=== PATIENT | female | born 1990 | race African-American/Black ===

== ENCOUNTER 2017-12-14 10:04 | Emergency (ER) | payer MEDICAID, SELFPAY ==
[2017-12-14] MEDS ORDERED: diphenhydrAMINE 50 MG/ML SDV IVPUSH ONE (11:07)
[2017-12-14] MEDS ORDERED: Ketorolac 30 MG/ML SDV IVPUSH ONE (11:07)
[2017-12-14] MEDS ORDERED: Prochlorperazine 5 MG in Sodium Chloride 0.9% 50 ML IV ONE (11:07)
[2017-12-14] MEDS ORDERED: Lactated Ringers 1,000 ML IV ONE (11:08)
--- NOTE | 2017-12-14 11:11 | EDM.PDOC ---
ED HPI GENERAL MEDICAL PROBLEM - General Chief Complaint: Headache Stated Complaint: HEADACHE Time Seen by Provider: 12/14/17 10:58 Source of Information: Reports: Patient, Family, RN Notes Reviewed History Limitations: Reports: No Limitations - History of Present Illness INITIAL COMMENTS - FREE TEXT/NARRATIVE: 27-year-old female presents emergency department today complaint of headache, she has a known history of migraine headaches which she uses Imitrex, this particular event has been ongoing for the last week she does have nausea and vomiting, photophobia she does not describe any aura her triptan's have not provided her any relief. 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: Neurological History: Reports: Migraines - Past Surgical History GI Surgical History: Reports: Appendectomy Social & Family History - Tobacco Use Smoking Status *Q: Current Every Day Smoker Years of Tobacco use: 15 Packs/Tins Daily: 0.5 - Recreational Drug Use Recreational Drug Use: No ED ROS GENERAL - Review of Systems Review Of Systems: See Below Constitutional: Denies: Fever, Chills HEENT: Reports: No Symptoms Respiratory: Reports: No Symptoms Cardiovascular: Reports: No Symptoms GI/Abdominal: Reports: Nausea, Vomiting : Reports: No Symptoms Neurological: Reports: Headache - Physical Exam Exam: See Below Exam Limited By: No Limitations General Appearance: Alert, WD/WN, No Apparent Distress Eye Exam: Bilateral Eye: EOMI, Normal Fundi, Normal Inspection, PERRL Respiratory/Chest: No Respiratory Distress Course - Vital Signs Last Recorded V/S: Last Vital Signs Temp 96.2 F 12/14/17 10:36 Pulse 60 12/14/17 12:20 Resp 12 12/14/17 12:20 BP 108/68 12/14/17 12:20 Pulse Ox 98 12/14/17 12:20 - Orders/Labs/Meds Orders: Active Orders 24 hr Category Date Time Status Peripheral IV Care [RC] . DIRECTED Care 12/14/17 11:09 Active Sodium Chloride 0.9% [Saline Flush] Med 12/14/17 11:08 Active 10 ml FLUSH ASDIRECTED PRN Peripheral IV Insertion Adult [OM.PC] Urgent Oth 12/14/17 11:08 Ordered Medication Orders Sodium Chloride (Saline Flush) 10 ml FLUSH ASDIRECTED PRN PRN Reason: Keep Vein Open Last Admin: 12/14/17 11:44 Dose: 10 ml Admin: 12/14/17 11:39 Dose: 10 ml Meds: Medications Generic Name Dose Route Start Last Admin Trade Name Freq PRN Reason Stop Dose Admin Sodium Chloride 10 ml 12/14/17 11:08 12/14/17 11:44 Saline Flush FLUSH 10 ml ASDIRECTED PRN Administration Keep Vein Open Discontinued Medications Generic Name Dose Route Start Last Admin Trade Name Freq PRN Reason Stop Dose Admin Diphenhydramine HCl 50 mg 12/14/17 11:07 12/14/17 11:40 Benadryl IVPUSH 12/14/17 11:08 50 mg ONETIME ONE Administration Prochlorperazine Edisylate 5 51 mls @ 150 mls/hr 12/14/17 11:07 12/14/17 11: 39 mg/ Sodium Chloride IV 12/14/17 11:27 150 mls/hr ONETIME ONE Administration Lactated Ringer's 1,000 mls @ 999 mls/hr 12/14/17 11:08 12/14/17 11:39 Ringers, Lactated IV 12/14/17 12:08 999 mls/hr BOLUS ONE Administration Ketorolac Tromethamine 30 mg 12/14/17 11:07 12/14/17 11:40 Toradol IVPUSH 12/14/17 11:08 30 mg ONETIME ONE Administration Departure - Departure Time of Disposition: 13:17 Disposition: Home, Self-Care 01 Condition: Good Clinical Impression: Migraine aura without headache - Discharge Information Referrals: PCP,None [Primary Care Provider] - Forms: ED Department Discharge Additional Instructions: Keep your follow-up appointment with neurology and follow-up with primary care as needed, call return to the emergency department with worsening of symptoms - My Orders Last 24 Hours: My Active Orders 12/14/17 11:08 Sodium Chloride 0.9% [Saline Flush] 10 ml FLUSH ASDIRECTED PRN Peripheral IV Insertion Adult [OM.PC] Urgent 12/14/17 11:09 Peripheral IV Care [RC] . DIRECTED - Assessment/Plan Last 24 Hours: My Active Orders 12/14/17 11:08 Sodium Chloride 0.9% [Saline Flush] 10 ml FLUSH ASDIRECTED PRN Peripheral IV Insertion Adult [OM.PC] Urgent 12/14/17 11:09 Peripheral IV Care [RC] . DIRECTED Plan: Assessment Acuity = acute Site and laterality = migraine type headache without aura Etiology = unclear etiology Manifestations = nausea, vomiting, photophobia Location of injury = Home Lab values = none Plan She had good improvement combination Toradol, Compazine, Benadryl and 1 L of fluids, follow-up primary care as needed she does have upcoming appointment with neurology This note was dictated using [email or web address] voice recognition software please call with any questions on syntax or grammar.
[2017-12-14] MEDS: Sodium Chloride 0.9% 10 ML Syringe FLUSH PRN ×2 (11:39→11:44)
[2017-12-14 12:20] VITALS: BP 108/68
== END 2017-12-14 13:48 | disposition home or self-care (01) ==
LOC: JP.ED 10:04
DX: G43.009 Migraine without aura, not intractable, without status migrainosus (principal); F17.210 Nicotine dependence, cigarettes, uncomplicated; Z91.013 Allergy to seafood
CPT/HCPCS: 96361; 96365; 96375; 99284; J0780; J1200; J1885; J7050; J7120

== ENCOUNTER 2018-11-21 08:37 | Emergency (ER) | payer MEDICAID ==
[2018-11-21] MEDS ORDERED: Prochlorperazine 10 MG/2 ML SDV IVPUSH ONE (08:41)
[2018-11-21] MEDS ORDERED: Ketorolac 30 MG/ML SDV IVPUSH ONE (08:41)
[2018-11-21] MEDS ORDERED: diphenhydrAMINE 50 MG/ML SDV IVPUSH ONE (08:41)
[2018-11-21] MEDS ORDERED: Sodium Chloride 0.9% 1,000 ML IV SCH (08:45)
--- NOTE | 2018-11-21 09:00 | EDM.PDOC ---
ED HPI GENERAL MEDICAL PROBLEM - General Stated Complaint: MIGRANES Time Seen by Provider: 11/21/18 08:45 Source of Information: Reports: Patient History Limitations: Reports: No Limitations - History of Present Illness INITIAL COMMENTS - FREE TEXT/NARRATIVE: 27-year-old female with chronic migraine headaches, developed a headache overnight after significant stress yesterday. She arrives tearful, crying with a diffuse throbbing migraine. No complaints of any peripheral weakness or significant difference from previous headaches. She was on a trial of Topamax and then Wellbutrin for prevention but side effects cost her to stop the medications. Nausea but no vomiting. Her last visit to the emergency room was 1 year ago. Onset: Gradual, Unknown/Unsure (Symptoms started overnight) Associated Symptoms: Reports: Malaise. 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 Denies: Chills HEENT: Denies: Vision Change Respiratory: Denies: Shortness of Breath Cardiovascular: Denies: Chest Pain GI/Abdominal: Reports: Nausea. Denies: Vomiting Skin: Reports: No Symptoms Neurological: Reports: Headache - Physical Exam Exam: See Below Exam Limited By: No Limitations General Appearance: Alert, Moderate Distress (Tearful, covering her head) Eye Exam: Bilateral Eye: EOMI, PERRL, Other (Exam done after medications were given) Head Exam: Atraumatic Respiratory/Chest: No Respiratory Distress Neuro Exam (Abbreviated): Alert, Oriented, No Motor/Sensory Deficits Skin Exam: Warm, Dry Course - Vital Signs Last Recorded V/S: Last Vital Signs Temp 97.9 F 11/21/18 12:22 Pulse 61 11/21/18 12:22 Resp 16 11/21/18 12:22 BP 78/40 L 11/21/18 12:22 Pulse Ox 99 11/21/18 12:22 - Orders/Labs/Meds Meds: Medications Discontinued Medications Generic Name Dose Route Start Last Admin Trade Name Mark PRN Reason Stop Dose Admin Diphenhydramine HCl 50 mg 11/21/18 08:41 11/21/18 08:55 Benadryl IVPUSH 11/21/18 08:42 50 mg ONETIME ONE Administration Sodium Chloride 1,000 mls @ 1,000 mls/hr 11/21/18 08:45 11/21/18 08:55 Normal Saline IV 1,000 mls/hr ASDIRECTED VALERIA Administration Ketorolac Tromethamine 30 mg 11/21/18 08:41 11/21/18 08:54 Toradol IVPUSH 11/21/18 08:42 30 mg ONETIME ONE Administration Prochlorperazine Edisylate 5 mg 11/21/18 08:41 11/21/18 08:54 Compazine IVPUSH 11/21/18 08:42 5 mg ONETIME ONE Administration - Re-Assessments/Exams Free Text/Narrative Re-Assessment/Exam: 11/21/18 09:00 An IV was started, patient was given 30 mg of IV Toradol, 5 mg of IV Compazine, 50 mg of IV Benadryl and 1 L of normal saline. 11/21/18 11:45 After sleeping for 3 hours, the patient was able to get up and go to the bathroom. Headache was markedly improved. Departure - Departure Time of Disposition: 12:23 Disposition: Home, Self-Care 01 Clinical Impression: Migraine headache Qualifiers: Status migrainosus presence: without status migrainosus Intractability: not intractable - Discharge Information Instructions: Recurrent Migraine Headache, [id number] Referrals: PCP,None [Primary Care Provider] - Forms: ED Department Discharge Care Plan Goals: Rest today, continue any current medications and recheck next week to discuss other options for headache prevention with your regular doctor.
[2018-11-21 09:12] VITALS: BP 78/40; PULSE 61
== END 2018-11-21 12:25 | disposition home or self-care (01) ==
LOC: JP.ED 08:37
DX: G43.909 Migraine, unspecified, not intractable, without status migrainosus (principal); Z91.013 Allergy to seafood; Z79.899 Other long term (current) drug therapy
CPT/HCPCS: 96361; 96374; 96375; 99283; J0780; J1200; J1885; J7030

== ENCOUNTER 2018-12-07 15:01 | Emergency (ER) | payer MEDICAID, OTHER ==
[2018-12-07 15:28] VITALS: BP 95/63; PULSE 69
[2018-12-07] MEDS ORDERED: Proparacaine 0.5% Ophth Soln 15 ML Bottle EYELF ONE (16:36)
--- NOTE | 2018-12-07 16:40 | EDM.PDOC ---
ED HPI GENERAL MEDICAL PROBLEM - General Chief Complaint: Eye Problems Stated Complaint: ACID IN LEFT EYE Time Seen by Provider: 12/07/18 16:19 - History of Present Illness INITIAL COMMENTS - FREE TEXT/NARRATIVE: she was at work and "gleam" splashed into her left eye causing immediate burning and pain. 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 ED EXAM GENERAL W FULL EYE - Physical Exam Exam: See Below Exam Limited By: No Limitations General Appearance: Alert, WD/WN, No Apparent Distress Eye Exam: Left Eye: Conjunctival Injection, Bilateral Eye: EOMI, PERRL Eyelids: Left: Edema, Erythema, Lid Everted for Exam Conjunctiva & Sclera: Left: Conjunctival Edema, Injected Cornea Exam: Left: Corneal Abrasion (at 6 o clock position) Pupils: Normal Accommodation Pupillary Size: Right: 4 mm Pupillary Reaction: Left: Brisk Head: Atraumatic, Normocephalic Respiratory/Chest: Normal Breath Sounds Cardiovascular: Regular Rate, Rhythm Neurological: Alert, Oriented, CN II-XII Intact, Normal Cognition, Normal Gait Psychiatric: Normal Affect, Normal Mood Skin Exam: Warm, Dry, Intact, Normal Color Course - Vital Signs Last Recorded V/S: Last Vital Signs Temp 97.6 F 12/07/18 15:23 Pulse 69 12/07/18 15:23 Resp 16 12/07/18 15:23 BP 95/63 08/04/19 15:23 Pulse Ox 98 12/07/18 15:23 - Orders/Labs/Meds Meds: Medications Discontinued Medications Generic Name Dose Route Start Last Admin Trade Name Mark PRN Reason Stop Dose Admin Proparacaine HCl 1 ml 12/07/18 16:36 Proparacaine 0.5% Ophth Soln EYELF 12/07/18 16:37 ONETIME ONE - Re-Assessments/Exams Free Text/Narrative Re-Assessment/Exam: 12/07/18 17:27 Using proparacaine and fluorescein, able to use blackman light to evaluate the eye. Abrasion appreciated at 6 o clock position Departure - Departure Time of Disposition: 16:38 Disposition: Home, Self-Care 01 Condition: Fair Clinical Impression: Acid chemical burn of left eye - Discharge Information *PRESCRIPTION DRUG MONITORING PROGRAM REVIEWED*: Not Applicable *COPY OF PRESCRIPTION DRUG MONITORING REPORT IN PATIENT JACOBO: Not Applicable Prescriptions: Polymyxin B Sulf/Trimethoprim [Polymyxin B-Tmp Eye Drops] 10 ml OP Q4HR #1 bottle Instructions: Chemical Burn, Adult, [id number] Referrals: PCP,None [Primary Care Provider] - Forms: ED Department Discharge Additional Instructions: Please see your eye doctor tomorrow Use drops as directed Call with questions Return with worsening of symptoms. - Problem List & Annotations (1) Acid chemical burn of left eye SNOMED Code(s): 645617837, 653421089 Code(s): T54.2X1A - TOXIC EFF OF CORROSV ACIDS AND ACID-LIKE SUBSTNC, ACC, INIT; T26.92XA - CORROSION OF LEFT EYE AND ADNEXA, PART UNSP, INIT ENCNTR Status: Acute Priority: Low
== END 2018-12-07 16:58 | disposition home or self-care (01) ==
LOC: JP.ED 15:01
DX: T54.2X1A Toxic effect of corrosive acids and acid-like substances, accidental (unintentional), initial encounter (principal); T26.62XA Corrosion of cornea and conjunctival sac, left eye, initial encounter; F17.210 Nicotine dependence, cigarettes, uncomplicated; Z91.013 Allergy to seafood; Z79.899 Other long term (current) drug therapy; Y99.0 Civilian activity done for income or pay
CPT/HCPCS: 99283; A9270

== ENCOUNTER 2019-06-13 22:33 | Emergency (ER) | payer BC, MEDICAID ==
[2019-06-13 22:51] VITALS: BP 114/74; PULSE 80
[2019-06-13] MEDS ORDERED: Lactated Ringers 1,000 ML IV ONE (22:52)
[2019-06-13] MEDS ORDERED: Ketorolac 30 MG/ML SDV IVPUSH ONE (22:53)
[2019-06-13] MEDS ORDERED: Prochlorperazine 10 MG in Sodium Chloride 0.9% 50 ML IV ONE (22:54)
[2019-06-13] MEDS ORDERED: diphenhydrAMINE 50 MG/ML SDV IVPUSH ONE (22:54)
--- NOTE | 2019-06-13 23:08 | EDM.PDOC ---
ED HPI GENERAL MEDICAL PROBLEM - General Chief Complaint: Headache Stated Complaint: MIGRAINE Time Seen by Provider: 06/13/19 22:50 Source of Information: Reports: Patient, Old Records, RN History Limitations: Reports: No Limitations - History of Present Illness INITIAL COMMENTS - FREE TEXT/NARRATIVE: 28 yo female here with a migraine ROBLES. Has had nausea but no vomiting. No fever. Has a stiff neck, but this is common with her migraines. Does not get them often , but this is typically how she feels with them. Is sensitive to light. ROBLES is worse with standing. Onset yesterday. Here with family. Onset: Gradual Onset Date: 06/12/19 Duration: Day(s): (1), Constant Location: Reports: Head Quality: Reports: Ache Severity: Severe Improves with: Reports: Other (lying, closing eyes) Worsens with: Reports: Other (standing, bright lights) Context: Reports: Other (see HPI) Associated Symptoms: Reports: Headaches, Nausea/Vomiting (no vomiting). 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: Musculoskeletal History: Reports: Fracture Neurological History: Reports: Migraines - Past Surgical History GI Surgical History: Reports: Appendectomy Female Surgical History: Reports: Section Social & Family History - Family History Family Medical History: Noncontributory - Tobacco Use Smoking Status *Q: Current Every Day Smoker Years of Tobacco use: 13 Packs/Tins Daily: 0.2 - Caffeine Use Caffeine Use: Reports: Soda - Recreational Drug Use Recreational Drug Use: No ED ROS GENERAL - Review of Systems Review Of Systems: See Below Constitutional: Reports: No Symptoms HEENT: Reports: No Symptoms Respiratory: Reports: No Symptoms Cardiovascular: Reports: No Symptoms GI/Abdominal: Reports: Nausea. Denies: Diarrhea, Vomiting : Reports: No Symptoms Musculoskeletal: Reports: No Symptoms Skin: Reports: No Symptoms Neurological: Reports: Headache Psychiatric: Reports: No Symptoms - Physical Exam Exam: See Below Exam Limited By: No Limitations General Appearance: Alert, WD/WN, No Apparent Distress, Obese Eye Exam: Bilateral Eye: Normal Inspection, Other (photophobia) Ears: Normal External Exam, Normal Canal, Hearing Grossly Normal, Normal TMs Nose: Normal Inspection, No Blood Throat/Mouth: Normal Inspection, Normal Lips, Normal Oropharynx, Normal Voice, No Airway Compromise Head Exam: Atraumatic, Normocephalic Neck: Normal Inspection Respiratory/Chest: No Respiratory Distress, Lungs Clear, Normal Breath Sounds, No Accessory Muscle Use Cardiovascular: Regular Rate, Rhythm, No Edema GI/Abdominal: Normal Bowel Sounds, Soft, Non-Tender, No Distention Neuro Exam (Abbreviated): Alert, Oriented, CN II-XII Intact, Normal Cognition, No Motor/Sensory Deficits Back Exam: Normal Inspection. No: CVA Tenderness (R), CVA Tenderness (L) Extremities: Normal Inspection, Normal Range of Motion, Non-Tender, No Pedal Edema Psychiatric: Normal Affect, Normal Mood Skin Exam: Warm, Dry, Intact, Normal Color, No Rash Course - Vital Signs Text/Narrative:: Feeling better after treatment. Last Recorded V/S: Last Vital Signs Temp 36.0 C 06/13/19 22:47 Pulse 80 06/13/19 22:47 Resp 16 06/13/19 22:47 BP 114/74 06/13/19 22:47 Pulse Ox 98 06/13/19 22:47 - Orders/Labs/Meds Meds: Medications Discontinued Medications Generic Name Dose Route Start Last Admin Trade Name Mark PRN Reason Stop Dose Admin Diphenhydramine HCl 25 mg 06/13/19 22:54 06/13/19 23:17 Benadryl IVPUSH 06/13/19 22:55 25 mg ONETIME ONE Administration Lactated Ringer's 1,000 mls @ 1,000 mls/hr 06/13/19 22:52 06/13/19 23:15 Ringers, Lactated IV 06/13/19 23:51 1,000 mls/hr BOLUS ONE Administration Prochlorperazine Edisylate 10 52 mls @ 150 mls/hr 06/13/19 22:54 06/13/19 23: 17 mg/ Sodium Chloride IV 06/13/19 23:14 150 mls/hr ONETIME ONE Administration Ketorolac Tromethamine 30 mg 06/13/19 22:53 06/13/19 23:16 Toradol IVPUSH 06/13/19 22:54 30 mg ONETIME ONE Administration Departure - Departure Time of Disposition: 00:30 Disposition: Home, Self-Care 01 Condition: Good Clinical Impression: Migraine Qualifiers: Migraine type: without aura Status migrainosus presence: without status migrainosus Intractability: not intractable Qualified Code(s): G43.009 - Migraine without aura, not intractable, without status migrainosus - Discharge Information *PRESCRIPTION DRUG MONITORING PROGRAM REVIEWED*: No *COPY OF PRESCRIPTION DRUG MONITORING REPORT IN PATIENT JACOBO: No Referrals: Janessa Bhardwaj MD [Primary Care Provider] - Forms: ED Department Discharge Additional Instructions: No driving tonight. Discuss options with your primary for treatment of migraine at home. You might try Excedrin Migraine at the onset of new migraine as this works pretty well. Sepsis Event Note - Evaluation Sepsis Screening Result: No Definite Risk - Focused Exam Vital Signs: Vital Signs Temp Pulse Resp BP Pulse Ox 06/13/19 22:47 36.0 C 80 16 114/74 98 Date Exam was Performed: 06/14/19 Time Exam was Performed: 00:19
== END 2019-06-14 00:30 | disposition home or self-care (01) ==
LOC: JP.ED 22:33
DX: G43.009 Migraine without aura, not intractable, without status migrainosus (principal); F17.210 Nicotine dependence, cigarettes, uncomplicated; Z91.013 Allergy to seafood
CPT/HCPCS: 96361; 96365; 96375; 99283; J0780; J1200; J1885; J7050; J7120

== ENCOUNTER 2019-08-28 12:33 | Emergency (ER) | payer BC ==
[2019-08-28] MEDS ORDERED: diphenhydrAMINE 50 MG/ML SDV IVPUSH ONE (12:44)
[2019-08-28] MEDS ORDERED: Prochlorperazine 10 MG/2 ML SDV IVPUSH ONE (12:44)
[2019-08-28] MEDS ORDERED: Lactated Ringers 1,000 ML IV ONE (12:44)
[2019-08-28] MEDS ORDERED: Ketorolac 30 MG/ML SDV IVPUSH ONE (12:45)
--- NOTE | 2019-08-28 13:14 | EDM.PDOC ---
ED HPI GENERAL MEDICAL PROBLEM - General Chief Complaint: Headache Stated Complaint: MIGRAINE Time Seen by Provider: 08/28/19 13:09 Source of Information: Reports: Patient, Old Records, RN History Limitations: Reports: No Limitations - History of Present Illness INITIAL COMMENTS - FREE TEXT/NARRATIVE: 28 yo black female presents with a migraine for several days. No fever. Has nausea without vomiting. No neck stiffness. Her primary left the area and she has not gotten a new one so had not been into the clinic for this. Feels just like prior ROBLES's she has had. Her brought her to the ER. Onset: Gradual Duration: Day(s):, Constant Location: Reports: Head Quality: Reports: Ache Severity: Moderate Improves with: Reports: None Worsens with: Reports: Other (unknown) Context: Reports: Other (see HPI) Associated Symptoms: Reports: Headaches, Nausea/Vomiting (no vomiting). 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: Musculoskeletal History: Reports: Fracture Neurological History: Reports: Migraines - Past Surgical History GI Surgical History: Reports: Appendectomy Female Surgical History: Reports: Section Musculoskeletal Surgical History: Reports: Arthroscopic Knee Social & Family History - Family History Family Medical History: Noncontributory - Tobacco Use Smoking Status *Q: Light Tobacco Smoker Years of Tobacco use: 10 Packs/Tins Daily: 0.2 - Caffeine Use Caffeine Use: Reports: None - Recreational Drug Use Recreational Drug Use: No ED ROS GENERAL - Review of Systems Review Of Systems: See Below Constitutional: Reports: Malaise. Denies: Fever HEENT: Reports: Other (photophobia) Respiratory: Reports: No Symptoms Cardiovascular: Reports: No Symptoms Endocrine: Reports: No Symptoms GI/Abdominal: Reports: Anorexia, Nausea. Denies: Black Stool, Bloody Stool, Diarrhea, Hematemesis, Hematochezia, Melena, Vomiting : Reports: No Symptoms Musculoskeletal: Reports: No Symptoms Skin: Reports: No Symptoms Neurological: Reports: Headache, Difficulty Walking ( has been helping her.). Denies: Confusion, Numbness, Seizure, Syncope, Tingling, Trouble Speaking, Change in Speech, Gait Disturbance Psychiatric: Reports: No Symptoms - Physical Exam Exam: See Below Exam Limited By: No Limitations General Appearance: Alert, WD/WN, No Apparent Distress Eye Exam: Bilateral Eye: Normal Inspection (wearing sunglasses) Ears: Normal External Exam, Normal Canal, Hearing Grossly Normal, Normal TMs Nose: Normal Inspection, No Blood Throat/Mouth: Normal Inspection, Normal Lips, Normal Oropharynx, Normal Voice, No Airway Compromise Head Exam: Atraumatic, Normocephalic Neck: Normal Inspection Respiratory/Chest: No Respiratory Distress, Lungs Clear, Normal Breath Sounds, No Accessory Muscle Use Cardiovascular: Regular Rate, Rhythm, No Edema GI/Abdominal: Normal Bowel Sounds, Soft, Non-Tender, No Distention Neuro Exam (Abbreviated): Alert, Oriented, CN II-XII Intact, Normal Cognition, No Motor/Sensory Deficits Extremities: Normal Inspection, Normal Range of Motion, Non-Tender, No Pedal Edema Psychiatric: Normal Affect, Normal Mood Skin Exam: Warm, Dry, Intact, Normal Color, No Rash Course - Vital Signs Last Recorded V/S: Last Vital Signs Temp 36.9 C 08/28/19 12:50 Pulse 70 08/28/19 14:01 Resp 16 08/28/19 13:27 BP 94/55 L 08/28/19 14:01 Pulse Ox 100 08/28/19 14:01 - Orders/Labs/Meds Meds: Medications Discontinued Medications Generic Name Dose Route Start Last Admin Trade Name Mark PRN Reason Stop Dose Admin Diphenhydramine HCl 25 mg 08/28/19 12:44 08/28/19 13:32 Benadryl IVPUSH 08/28/19 12:45 25 mg ONETIME ONE Administration Lactated Ringer's 1,000 mls @ 1,000 mls/hr 08/28/19 12:44 08/28/19 13:27 Ringers, Lactated IV 08/28/19 13:43 1,000 mls/hr BOLUS ONE Administration Ketorolac Tromethamine 30 mg 08/28/19 12:45 08/28/19 13:28 Toradol IVPUSH 08/28/19 12:46 30 mg ONETIME ONE Administration Prochlorperazine Edisylate 10 mg 08/28/19 12:44 08/28/19 13:29 Compazine IVPUSH 08/28/19 12:45 10 mg ONETIME ONE Administration - Re-Assessments/Exams Free Text/Narrative Re-Assessment/Exam: 08/28/19 14:29 ROBLES and nausea gone. Departure - Departure Time of Disposition: 14:35 Disposition: Home, Self-Care 01 Condition: Good Clinical Impression: Migraine Qualifiers: Migraine type: without aura Status migrainosus presence: without status migrainosus Intractability: not intractable Qualified Code(s): G43.009 - Migraine without aura, not intractable, without status migrainosus - Discharge Information *PRESCRIPTION DRUG MONITORING PROGRAM REVIEWED*: No *COPY OF PRESCRIPTION DRUG MONITORING REPORT IN PATIENT JACOBO: No Instructions: Migraine Headache, [id number] Referrals: PCP,None [Primary Care Provider] - Forms: ED Department Discharge Additional Instructions: Home to sleep. No driving today. Get established with a doctor of your choice and discuss medications you can take for migraine treatment at home. In the meantime if you get a migraine try Excedrin Migraine as use per package instructions. Sepsis Event Note - Evaluation Sepsis Screening Result: No Definite Risk - Focused Exam Vital Signs: Vital Signs Temp Pulse Resp BP Pulse Ox 08/28/19 14:01 70 94/55 L 100 08/28/19 13:27 76 16 108/49 L 99 08/28/19 12:50 36.9 C 92 16 112/67 98 Date Exam was Performed: 08/28/19 Time Exam was Performed: 14:29
[2019-08-28 14:02] VITALS: BP 94/55; PULSE 70
== END 2019-08-28 14:41 | disposition home or self-care (01) ==
LOC: JP.ED 12:33
DX: G43.009 Migraine without aura, not intractable, without status migrainosus (principal); F17.210 Nicotine dependence, cigarettes, uncomplicated; Z91.013 Allergy to seafood
CPT/HCPCS: 96361; 96374; 96375; 99283; J0780; J1200; J1885; J7120

== ENCOUNTER 2020-02-02 22:56 | Emergency (ER) | payer MEDICAID ==
[2020-02-02 23:08] VITALS: BP 118/67; PULSE 97
== END 2020-02-02 23:37 | disposition left against medical advice (07) ==
LOC: JP.ED 22:56
DX: Z53.21 Procedure and treatment not carried out due to patient leaving prior to being seen by health care provider (principal)

== ENCOUNTER 2020-07-07 15:34 | Emergency (ER) | payer MEDICAID ==
[2020-07-07 16:05] VITALS: BP 102/56; PULSE 76
[2020-07-07] MEDS ORDERED: Acetaminophen 325 MG Tab PO PRN (16:22)
[2020-07-07] MEDS ORDERED: Albuterol/Ipratropium 4 GM Inhalation Spray INH PRN (16:27)
--- NOTE | 2020-07-07 16:28 | EDM.PDOC ---
ED HPI GENERAL MEDICAL PROBLEM - General Chief Complaint: General Stated Complaint: CHILLS,SOB,TROUBLE BREATHING Time Seen by Provider: 07/07/20 16:13 Source of Information: Reports: Patient, RN Notes Reviewed History Limitations: Reports: No Limitations - History of Present Illness INITIAL COMMENTS - FREE TEXT/NARRATIVE: 29-year-old female presents emergency department today with complaint of shortness of breath she states been ill for about 24 hours short of breath body aches has not been feverish no loss of taste or smell Generalized Pain Score (Numeric/FACES): 7 - Related Data Allergies Allergy/AdvReac Type Severity Reaction Status Date / Time shellfish derived Allergy Airway Verified 07/07/20 15:55 Tightness Home Meds: Home Meds NK [No Known Home Meds] 08/28/19 [History] Past Medical History HEENT History: Reports: Impaired 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: Musculoskeletal History: Reports: Fracture Neurological History: Reports: Migraines Endocrine/Metabolic History: Reports: Obesity/BMI 30+ - Infectious Disease History Infectious Disease History: Reports: Chicken Pox - Past Surgical History GI Surgical History: Reports: Appendectomy Female Surgical History: Reports: Section Musculoskeletal Surgical History: Reports: Arthroscopic Knee Social & Family History - Family History Family Medical History: No Pertinent Family History - Tobacco Use Tobacco Use Status *Q: Current Every Day Tobacco User Years of Tobacco use: 10 Packs/Tins Daily: 0.2 Used Tobacco, but Quit: No Second Hand Smoke Exposure: Yes - Caffeine Use Caffeine Use: Reports: Soda, Tea - Recreational Drug Use Recreational Drug Use: No ED ROS GENERAL - Review of Systems Review Of Systems: See Below Constitutional: Reports: Chills, Fatigue. Denies: Fever HEENT: Reports: No Symptoms Respiratory: Reports: Shortness of Breath, Wheezing, Cough Cardiovascular: Reports: Dyspnea on Exertion GI/Abdominal: Reports: No Symptoms ED EXAM, GENERAL - Physical Exam Exam: See Below Exam Limited By: No Limitations General Appearance: Alert, WD/WN, No Apparent Distress Respiratory/Chest: Decreased Breath Sounds, Rhonchi, Wheezing Cardiovascular: Regular Rate, Rhythm, No Murmur GI/Abdominal: Soft, Non-Tender Course - Vital Signs Last Recorded V/S: Last Vital Signs Temp 96.8 F L 07/07/20 16:03 Pulse 76 07/07/20 16:03 Resp 21 H 07/07/20 16:03 BP 102/56 L 07/07/20 16:03 Pulse Ox 100 07/07/20 16:03 - Orders/Labs/Meds Orders: Active Orders 24 hr Category Date Time Status Nurse Communication: Isolation [RC] ASDIRECTED Care 07/07/20 16:23 Active RT Post Treatment Assessment [RC] Click to Edit Care 07/07/20 16:27 Active Chest 2V [CR] Stat Exams 07/07/20 16:23 Taken Acetaminophen [TylenoL] Med 07/07/20 16:22 Active 650 mg PO Q4H PRN Albuterol/Ipratropium [Combivent Respimat] Med 07/07/20 16:27 Active 1 gm INH Q4H PRN Isolation [COMM] Stat Oth 07/07/20 16:22 Ordered Medication Orders Acetaminophen (Tylenol) 650 mg PO Q4H PRN PRN Reason: Fever Greater Than 101 Albuterol/Ipratropium (Combivent Respimat) 1 gm INH Q4H PRN PRN Reason: Dyspnea Last Admin: 07/07/20 18:13 Dose: 1 dose Documented by: AMANDA Labs: Laboratory Tests 07/07/20 07/07/20 07/07/20 Range/Units 16:24 16:48 16:48 WBC 7.3 (4.5-11.0) K/uL RBC 4.03 (3.30-5.50) M/uL Hgb 11.2 L D (12.0-15.0) g/dL Hct 35.5 L (36.0-48.0) % MCV 88 (80-98) fL MCH 28 (27-31) pg MCHC 32 (32-36) % Plt Count 344 (150-400) K/uL Neut % (Auto) 69 H (36-66) % Lymph % (Auto) 21 L (24-44) % Calloway % (Auto) 8 H (2-6) % Eos % (Auto) 2 (2-4) % Baso % (Auto) 0 (0-1) % D-Dimer, Quantitative 405.66 (0.0-500.0) ng/mL Sodium (140-148) mmol/L Potassium (3.6-5.2) mmol/L Chloride (100-108) mmol/L Carbon Dioxide (21-32) mmol/L Anion Gap (5.0-14.0) mmol/L BUN (7-18) mg/dL Creatinine (0.6-1.0) mg/dL Est Cr Clr Drug Dosing mL/min Estimated GFR (MDRD) (>60) Glucose (74-106) mg/dL Lactic Acid (0.4-2.0) mmol/L Calcium (8.5-10.1) mg/dL Total Bilirubin (0.2-1.0) mg/dL Direct Bilirubin (0.0-0.2) mg/dL Indirect Bilirubin AST (15-37) U/L ALT (12-78) U/L Alkaline Phosphatase (46-116) U/L C-Reactive Protein (0.0-0.3) mg/dL Total Protein (6.4-8.2) g/dL Albumin (3.4-5.0) g/dL Globulin (2.3-3.5) g/dL Albumin/Globulin Ratio (1.2-2.2) Procalcitonin ng/mL Influenza Type A RNA Negative (NEGATIVE) RSV RNA ([place]AT) Negative (NEGATIVE) Influenza Type B RNA Negative (NEGATIVE) SARS-CoV-2 RNA ([place]) Negative (NEGATIVE) 07/07/20 07/07/20 07/07/20 Range/Units 16:48 16:48 16:48 WBC (4.5-11.0) K/uL RBC (3.30-5.50) M/uL Hgb (12.0-15.0) g/dL Hct (36.0-48.0) % MCV (80-98) fL MCH (27-31) pg MCHC (32-36) % Plt Count (150-400) K/uL Neut % (Auto) (36-66) % Lymph % (Auto) (24-44) % Calloway % (Auto) (2-6) % Eos % (Auto) (2-4) % Baso % (Auto) (0-1) % D-Dimer, Quantitative (0.0-500.0) ng/mL Sodium 139 L (140-148) mmol/L Potassium 3.4 L (3.6-5.2) mmol/L Chloride 103 (100-108) mmol/L Carbon Dioxide 25 (21-32) mmol/L Anion Gap 14.4 H (5.0-14.0) mmol/L BUN 6 L (7-18) mg/dL Creatinine 0.8 (0.6-1.0) mg/dL Est Cr Clr Drug Dosing 84.29 mL/min Estimated GFR (MDRD) > 60 (>60) Glucose 76 (74-106) mg/dL Lactic Acid 1.9 (0.4-2.0) mmol/L Calcium 8.7 (8.5-10.1) mg/dL Total Bilirubin 0.1 L (0.2-1.0) mg/dL Direct Bilirubin 0.05 (0.0-0.2) mg/dL Indirect Bilirubin TNP AST 14 L (15-37) U/L ALT 24 (12-78) U/L Alkaline Phosphatase 82 (46-116) U/L C-Reactive Protein 1.12 H (0.0-0.3) mg/dL Total Protein 7.7 (6.4-8.2) g/dL Albumin 3.7 (3.4-5.0) g/dL Globulin 4.0 H (2.3-3.5) g/dL Albumin/Globulin Ratio 0.9 L (1.2-2.2) Procalcitonin < 0.05 ng/mL Influenza Type A RNA (NEGATIVE) RSV RNA ([place]AT) (NEGATIVE) Influenza Type B RNA (NEGATIVE) SARS-CoV-2 RNA ([place]) (NEGATIVE) Meds: Medications Generic Name Dose Route Start Last Admin Trade Name Freq PRN Reason Stop Dose Admin Acetaminophen 650 mg 07/07/20 16:22 Tylenol PO Q4H PRN Fever Greater Than 101 Albuterol/Ipratropium 1 gm 07/07/20 16:27 07/07/20 18:13 Combivent Respimat INH 1 dose Q4H PRN Administration Dyspnea Departure - Departure Time of Disposition: 18:20 Disposition: Home, Self-Care 01 Condition: Fair Clinical Impression: Bronchitis - Discharge Information Instructions: Acute Bronchitis, Adult, [id number], Metered Dose Inhaler (No Spacer Used) Referrals: PCP,None [Primary Care Provider] - Forms: ED Department Discharge Additional Instructions: Take full course of antibiotics, take full course of prednisone please followup with your primary care provider in 3-5 days if not better, please call return to the emergency department with worsening of symptoms., Sepsis Event Note (ED) - Evaluation Sepsis Screening Result: No Definite Risk - Focused Exam Vital Signs: Vital Signs Temp Pulse Resp BP Pulse Ox 07/07/20 16:03 96.8 F L 76 21 H 102/56 L 100 - My Orders Last 24 Hours: My Active Orders 07/07/20 16:22 Acetaminophen [TylenoL] 650 mg PO Q4H PRN Isolation [COMM] Stat 07/07/20 16:23 Nurse Communication: Isolation [RC] ASDIRECTED Chest 2V [CR] Stat 07/07/20 16:27 RT Post Treatment Assessment [RC] Click to Edit Albuterol/Ipratropium [Combivent Respimat] 1 gm INH Q4H PRN - Assessment/Plan Last 24 Hours: My Active Orders 07/07/20 16:22 Acetaminophen [TylenoL] 650 mg PO Q4H PRN Isolation [COMM] Stat 07/07/20 16:23 Nurse Communication: Isolation [RC] ASDIRECTED Chest 2V [CR] Stat 07/07/20 16:27 RT Post Treatment Assessment [RC] Click to Edit Albuterol/Ipratropium [Combivent Respimat] 1 gm INH Q4H PRN Plan: Assessment Acuity = acute Site and laterality = bronchitis Etiology = probable bacterial cause Manifestations = wheezing, dyspnea Location of injury = Home Lab values = CBC, CMP unremarkable procalcitonin lactic acid within normal limits chest x-ray shows no acute process Plan She had good relief with the MDI inhaler prescription written for prednisone 20 mg once a day for 5 days with azithromycin follow-up primary care 3 to 5 days if not better This note was dictated using [employer] voice recognition software please call with any questions on syntax or grammar.
[2020-07-07 17:13] LABS: CORONAVIRUS COVID-19 NAA NEGATIVE (NEGATIVE)
--- NOTE | 2020-07-08 09:40 | CR ---
CHEST: 2 view CLINICAL HISTORY:SOB COMPARISON:None FINDINGS: The heart size, pulmonary vascularity and hilar structures are normal. No infiltrate effusion or pneumothorax is seen. IMPRESSION: No acute cardiopulmonary process.
== END 2020-07-07 18:33 | disposition home or self-care (01) ==
LOC: JP.ED 15:34
DX: J40 Bronchitis, not specified as acute or chronic (principal); E66.9 Obesity, unspecified; Z20.822 Contact with and (suspected) exposure to COVID-19; Z91.013 Allergy to seafood; Z72.0 Tobacco use; Z68.45 Body mass index [BMI] 70 or greater, adult
CPT/HCPCS: 0241U; 36415; 71046; 80048; 80076; 83605; 84145; 85025; 85379; 86140; 94640; 99285; A9270; 99284

== ENCOUNTER 2021-01-27 20:58 | Emergency (ER) | payer MEDICAID ==
[2021-01-27 21:16] VITALS: BP 108/74; PULSE 71
--- NOTE | 2021-01-27 21:21 | EDM.PDOC ---
ED HPI GENERAL MEDICAL PROBLEM - General Chief Complaint: Neck Problem Stated Complaint: NECK PAIN Time Seen by Provider: 01/27/21 21:11 Source of Information: Reports: Patient History Limitations: Reports: No Limitations - History of Present Illness INITIAL COMMENTS - FREE TEXT/NARRATIVE: Jacob is a 31-year-old female presenting to the ED with acute onset of neck stiffness. The patient's symptoms started yesterday when she was bent over loading objects into a box at work and she started to develop stiffness. She awoke this morning and was unable to move her head side to side. She does appear to be quite stiff. She is complaining of 6 out of 10 pain with movement. 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 She denies any numbness or tingling in the arms. There is been no weakness. She denies headache. 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: Musculoskeletal History: Reports: Fracture Neurological History: Reports: Migraines Endocrine/Metabolic History: Reports: Obesity/BMI 30+ - Infectious Disease History Infectious Disease History: Reports: Chicken Pox - Past Surgical History GI Surgical History: Reports: Appendectomy Female Surgical History: Reports: Section Musculoskeletal Surgical History: Reports: Arthroscopic Knee Social & Family History - Family History Family Medical History: No Pertinent Family History - Caffeine Use Caffeine Use: Reports: Soda, Tea ED ROS GENERAL - Review of Systems Review Of Systems: See Below Constitutional: Reports: No Symptoms HEENT: Reports: No Symptoms Respiratory: Reports: No Symptoms Cardiovascular: Reports: No Symptoms Endocrine: Reports: No Symptoms GI/Abdominal: Reports: No Symptoms : Reports: No Symptoms Musculoskeletal: Reports: Neck Pain, Back Pain, Muscle Stiffness (Bilateral neck and upper back stiffness) Skin: Reports: No Symptoms Neurological: Reports: No Symptoms Psychiatric: Reports: No Symptoms Hematologic/Lymphatic: Reports: No Symptoms ED EXAM, UPPER BACK/NECK PAIN - Physical Exam Exam: See Below Exam Limited By: No Limitations General Appearance: Alert, Mild Distress Eye Exam: Bilateral Eye: EOMI, PERRL Head Exam: Atraumatic, Normocephalic Neck Exam: Limited Range of Motion (Marked reduction in range of motion with rotation and lateral flexion. Decreased pain with forward flexion, increased pain with extension of the neck), Muscle Spasm (Cervical and upper thoracic paraspinal muscle spasm), Painful Range of Motion, Paraspinous Muscle Tender, Tender Midline Cardiovascular/Respiratory: Regular Rate, Rhythm, No M/R/G, Normal Peripheral Pulses Extremities: Normal Inspection, Normal Range of Motion Neurologic: No Motor/Sensory Deficits, Alert, Normal Mood/Affect, Oriented x 3 Course - Vital Signs Last Recorded V/S: Last Vital Signs Temp 36.1 C 01/27/21 21:15 Pulse 71 01/27/21 21:15 Resp 16 01/27/21 21:15 BP 108/74 01/27/21 21:15 Pulse Ox 98 01/27/21 21:15 - Orders/Labs/Meds Meds: Medications Discontinued Medications Generic Name Dose Route Start Last Admin Trade Name Mark PRN Reason Stop Dose Admin Ketorolac Tromethamine 30 mg 01/27/21 21:22 01/27/21 21:28 Ketorolac 30 Mg/Ml Sdv IM 01/27/21 21:23 30 mg ONETIME STA Administration Methocarbamol 1,000 mg 01/27/21 21:22 01/27/21 21:27 Methocarbamol 500 Mg Tab PO 01/27/21 21:23 1,000 mg ONETIME ONE Administration - Re-Assessments/Exams Free Text/Narrative Re-Assessment/Exam: 01/27/21 21:26 the patient has significant bilateral paraspinal muscle spasm and midline tenderness to palpation. This was a nontraumatic injury so is unlikely that there is a deep 4 CT of the cervical spine. She is not exhibiting any rad icular symptoms down either arm. We will initiate therapy with methocarbamol 1 g p.o. and Toradol 30 mg IM and reassess her after the medication takes effect. If she is still having midline tenderness then we will proceed with a CT of the cervical spine. Her injury is likely due to repetitive motion with bending over and loading boxes. I did express that she would have some benefit with icing the area 15 to 20 minutes every couple hours she is awake over the next day or 2. My plan is if she is getting better with the methocarbamol and Toradol is to put her on oral forms of both with methocarbamol 750 mg 4 times daily as needed for spasm and pain and then the Toradol 10 mg 4 times daily as needed as needed for pain control. Occasions return to the ED were discussed. 01/27/21 22:08 she has had excellent results from the use of the methocarbamol and Toradol. No imaging is required at this time. Departure - Departure Time of Disposition: 22:08 Disposition: Home, Self-Care 01 Clinical Impression: Torticollis, spasmodic - Discharge Information Prescriptions: methocarbamoL [Methocarbamol] 750 mg PO QID PRN #28 tablet PRN Reason: Muscle Spasm - Painful Instructions: Acute Torticollis, Adult Referrals: Elsa Whitehead DO [Primary Care Provider] - Forms: ED Department Discharge Care Plan Goals: Your work-up has demonstrated that you have acute onset of torticollis or wry neck from being bent over and doing repetitive upper extremity movement causing strain of the cervical and upper thoracic muscles (neck and upper back muscles). This may recur with the repetitive motion so it is a good idea to do some stretching when you start to feel things tightening up. It is also an opportune time to apply ice to the area to head off the spasm. My plan is to treat this with a combination of methocarbamol which is a potent nonsedating muscle relaxant and Toradol which is a potent anti-inflammatory medication. I would recommend icing the area for 15 to 20 minutes every couple hours that you are awake. Sepsis Event Note (ED) - Focused Exam Vital Signs: Vital Signs Temp Pulse Resp BP Pulse Ox 01/27/21 21:15 36.1 C 71 16 108/74 98 - Problem List & Annotations (1) Torticollis, spasmodic SNOMED Code(s): 31663958 Code(s): G24.3 - SPASMODIC TORTICOLLIS Status: Acute Priority: Low Current Visit: Yes - Problem List Review Problem List Initiated/Reviewed/Updated: Yes
[2021-01-27] MEDS ORDERED: Methocarbamol 500 MG Tab PO ONE (21:22)
[2021-01-27] MEDS ORDERED: Ketorolac 30 MG/ML SDV IM STA (21:22)
== END 2021-01-27 22:17 | disposition home or self-care (01) ==
LOC: JP.ED 20:58
DX: G24.3 Spasmodic torticollis (principal); E66.9 Obesity, unspecified; Z68.37 Body mass index [BMI] 37.0-37.9, adult; Z91.013 Allergy to seafood
CPT/HCPCS: 96372; 99283; A9270; J1885